=== PATIENT | female | born 1955 | race Caucasian/White ===

== ENCOUNTER 2020-08-31 09:42 | Emergency (ER) | payer OTHER, SELFPAY ==
[2020-08-31 09:50] VITALS: BP 146/88; PULSE 61; RESP 18; TEMP 37.2; O2SAT 100; BMI 21.0
--- NOTE | 2020-08-31 09:59 | ED.EAR ---
HPI - Ear Problem General Chief complaint: Ear Stated complaint: LT EAR SWOLLEN/ PAINFUL 2X DAYS Time Seen by Provider: 08/31/20 09:51 Source: patient Mode of arrival: Ambulatory Limitations: no limitations History of Present Illness HPI Narrative: Patient is a 65-year-old female with history of repaired thoracic aortic aneurysm presenting today with left ear pain and swelling. She says it started 2 days ago but has significantly gotten worse overnight. She denies any fever or chills. She initially thought she got a bug bite and noticed it was slightly pruritic but is no longer. She now has anterior cervical lymphadenopathy all the left as well. She denies any change in hearing MD Complaint: ear pain Location: left ear Duration: constant Severity: moderate Relieving factors: nothing Exacerbating factors: nothing Related Data Home Medications Medication Instructions Recorded Confirmed lisinopril 5 mg PO BID #1 06/18/11 Previous Rx's Medication Instructions Recorded cephalexin [Keflex] 500 mg PO TID #21 cap 08/31/20 Allergies Allergy/AdvReac Type Severity Reaction Status Date / Time No Known Drug Allergies Allergy Verified 08/31/20 09:50 Review of Systems Review of Systems Narrative: GENERAL: Denies chills, fatigue, malaise, fever, sweats, travel HEENT: see HPI RESPIRATORY: Denies dyspnea, cough, wheezing, hemoptysis, sputum. CARDIOVASCULAR: Denies chest pain, palpitations, orthopnea, edema GASTROINTESTINAL: Denies nausea, vomiting, abdominal pain, diarrhea, constipation, melena. : Denies dysuria, frequency, incontinence, hematuria, urinary retention, flank pain. MUSCULOSKELETAL: Denies weakness, joint pain, or bony pain SKIN: No rash, no erythema, no pruritus NEUROLOGIC: Denies weakness, dizziness, headache, numbness, change in speech, confusion PSYCHIATRIC: No concerning psychosocial issues. 12 point review of systems is negative except for those stated above and HPI Patient History Medical History Thoracic aortic aneurysm (Acute) Social History Smoking Status: Never smoker Smoking Status: Never smoker alcohol intake frequency: holidays/special occasions only Substance Use Type: does not use Exam Initial Vital Signs Initial Vital Signs: Vital Signs Temperature 99.0 F 10/04/20 09:50 Pulse Rate 61 08/31/20 09:50 Respiratory Rate 18 08/31/20 09:50 Blood Pressure 146/88 H 08/31/20 09:50 Pulse Oximetry 100 08/31/20 09:50 GENERAL: Well-appearing, well-nourished and in no acute distress. HEENT: Head atraumatic,EOMI, pupils reactive, face symmetric, moist mucous membranes EARS: Tympanic membranes visualized, no erythema or bulging, no hemotympanum left ear externally is noted to be significantly swollen there is a small scab noted on the very superior part. There is some mild erythema. She does have cervical lymphadenopathy on the left as well. No tenderness over mastoid. CARDIOVASCULAR: Regular rate and rhythm without murmurs, rubs or gallops. RESPIRATORY: Breath sounds equal bilaterally, no wheezes rales or rhonchi. EXTREMITIES: Normal range of motion, no clubbing or edema. Neurovascularly intact NEUROLOGICAL: Alert and oriented x4. SKIN: Warm, dry, no laceration, no petechiae, no rashes or lesions. Course Vital Signs Vital signs: Vital Signs - 8 hr 08/31/20 09:50 Temperature 99.0 F Pulse Rate 61 Respiratory Rate 18 Blood Pressure 146/88 H Pulse Oximetry 100 Medical Decision Making MDM Narrative Medical decision making narrative: Differential diagnosis includes allergic reaction versus cellulitis. Do not suspect otitis media or otitis externa there are no signs or symptoms of that. At this time recommend treating with antibiotics for possible cellulitis and monitoring Discharge Plan Departure Patient Disposition: Home Clinical Impression: Cellulitis Qualifiers: Site of cellulitis: unspecified site Qualified Code(s): L03.90 - Cellulitis, unspecified Discharge Date/Time: 08/31/20 10:11 Instructions: Cellulitis Activity Restrictions/Additional Instructions: *You have been diagnosed with cellulitis left ear *What to do: At this time recommend starting antibiotics to see if you have improvement. *Continue to take medications as directed Keflex 500 mg 3 times a day for 7 days *Follow up with your primary care provider in 2-3 days *Return to ER if you should have increased swelling, pain, redness, fever or any new, worsening or concerning symptoms Prescriptions: New cephalexin [Keflex] 500 mg capsule 500 mg PO TID Qty: 21 RF: 0 No Action lisinopril 5 MG tablet 5 mg PO BID Qty: 1 RF: 0 Referrals: [facility] [Outside] Jorden Beltrán MD [Non-Staff] - Neville Kirkland MD [Non-Staff] - Matthieu Navarro MD [Physician] - Tom Carnes MD [Physician] -
== END 2020-08-31 10:11 | disposition home or self-care (01) ==
PROVIDERS: Emergency Provider Emergency Medicine
DX: H60.12 Cellulitis of left external ear (principal)
CPT/HCPCS: 99281

== ENCOUNTER 2020-09-04 15:27 | Emergency (ER) | payer OTHER, SELFPAY ==
[2020-09-04 15:37] VITALS: BP 159/80; PULSE 59; RESP 18; TEMP 37.3; O2SAT 96; BMI 21.9
--- NOTE | 2020-09-04 16:30 | PC.NURSE ---
Pt has muliptl area of swelling and blistering on left ear,neck and left shoulder. Pt recently here started on antibiotic.
--- NOTE | 2020-09-04 17:28 | ED.SKABFB ---
HPI - Skin/Abscess/Foreign Bdy <Greta Johnson PA-C - Last Filed: 09/05/20 19:30> General Chief complaint: Skin/Abscess/Foreign Body Stated complaint: rash, thinks shingles Time Seen by Provider: 09/04/20 16:28 Source: patient Mode of arrival: Ambulatory Limitations: no limitations History of Present Illness HPI narrative: This is a 65-year-old generally healthy woman with a history of thoracic aortic aneurysm who presents to the emergency department complaining of worsening rash since Tuesday. She was diagnosed with a cellulitis of her ear on Tuesday and started on Keflex however since that time her symptoms have worsened and her rash has spread. Her symptoms began with left ear pain and itching and then a rash developed in the top of her ear. Since that time she has developed a rash on the lower left side of her neck under her chin on the left side and most recently her left shoulder as well as the back of her neck and scalp only on the left side. Patient describes her pain as sharp constant very intense. She has pain when she opens and closes her jaw, and she has pain shooting into her ear and pain shooting from her denominational to behind her eye. She endorses a generalized headache but notes it is mostly on the left and very intense. She does not feel she has had any vision changes but then notes that she feels things may be slightly more blurry on the left than usual but she is not sure if she is just having pain which is affecting her a little bit. She has been having itchiness however the pain is more severe than the itching. She did have chickenpox as a child, she has not had the shingles vaccine. She has discomfort with moving her head in her neck but only on the left side. She denies any fever, chills, nausea, vomiting, diarrhea, abdominal pain, chest pain, voice changes, paralysis of her face, bilateral neck pain or any other symptoms. Patient moved here from [place] in January and does not have an established primary care provider here, she is anticipating living here long-term in the future. complaint: rash Onset (ago): day(s) (5) Tetanus up to date: unsure Location: head (Left ear left neck left posterior scalp), neck and LUE (Left shoulder on the top) Severity: severe Severity scale (1-10): 9 Quality: burning, sharp, constant and pruritic Pain Consistency: constant Relieving factors: none and other (Has been taking aspirin without relief) Exacerbating factors: none Context: none Associated symptoms: denies other symptoms Treatments prior to arrival: antibiotic (Has been taking Keflex since Tuesday) Related Data Home Medications Medication Instructions Recorded Confirmed lisinopril 5 mg PO BID #1 06/18/11 Previous Rx's Medication Instructions Recorded cephalexin [Keflex] 500 mg PO TID #21 cap 08/31/20 oxycodone-acetaminophen 1 tab PO Q4-6H PRN #20 tab 09/04/20 prednisolone See Rx Instructions .ROUTE 09/04/20 .COMPLEX #48 each valacyclovir See Rx Instructions .ROUTE 09/04/20 .COMPLEX #60 tab Allergies Allergy/AdvReac Type Severity Reaction Status Date / Time No Known Drug Allergies Allergy Verified 09/04/20 15:41 Review of Systems <Greta Johnson PA-C - Last Filed: 09/05/20 19:30> Review of Systems Narrative: GENERAL: Denies chills, fatigue, malaise, fever, sweats. HEENT: Denies sinus pain, positive for left ear pain, positive for left-sided throat pain only when swallowing negative for sore throat, negative for difficulty swallowing, dizziness. RESPIRATORY: Denies dyspnea, cough, wheezing, hemoptysis, sputum. CARDIOVASCULAR: Denies chest pain, palpitations, orthopnea, edema, GASTROINTESTINAL: Denies nausea, vomiting, abdominal pain, diarrhea, constipation, melena. : Denies dysuria, frequency, incontinence, hematuria, urinary retention. MUSCULOSKELETAL: denies weakness, joint pain, or bony pain, she has no midline spinal process tenderness, she has discomfort on the left side of her neck only, no meningeal signs. SKIN: Positive for rash of her left ear left neck under her chin left shoulder. Negative for other skin lesions, or other NEUROLOGIC: Denies weakness, headache, positive for a numb sensation in her left ear (externally), negative for change in speech, confusion, seizures, incoordination. PSYCHIATRIC: No concerning psychosocial issues. 12 point review of systems is negative except for those stated above ROS Unobtainable: All systems reviewed & are unremarkable except as noted in HPI and below Patient History <Greta Johnson PA-C - Last Filed: 09/05/20 19:30> Medical History Thoracic aortic aneurysm (Acute) Social History Smoking Status: Never smoker Smoking Status: Never smoker alcohol intake frequency: holidays/special occasions only Substance Use Type: does not use Exam <Greta Johnson PA-C - Last Filed: 09/05/20 19:30> Narrative Exam Narrative: GENERAL: 65 year old patient appears stated age. Well-nourished, well-developed patient, in moderate distress. HEAD: Atraumatic. Normocephalic. EYES: Pupils equal round and reactive. Extraocular motions intact. No scleral icterus. No injection or drainage. ENT: Nose without bleeding, purulent drainage. Throat without erythema, tonsillar hypertrophy or exudate. Airway patent. The left ear canal is normal in appearance, as is the right, the left and right tympanic membranes are normal in appearance with exception of left TM is slightly injected. Patient has pain on the left side of her jaw with chewing and biting down. There is a 1 cm x 2 cm lesion on the anterior auricle of the ear, see skin there are multiple additional lesions of the left side of the neck and on the left shoulder. NECK: Trachea midline. Non tender CARDIOVASCULAR: Regular rate and rhythm without murmurs, gallops, or rubs. RESPIRATORY: Clear to auscultation. Breath sounds equal bilaterally. No wheezes, rales, or rhonchi. GASTROINTESTINAL: Abdomen soft, non-tender, nondistended. EXTREMITIES: No edema or joint tenderness. BACK: Nontender without deformity or crepitance. No flank tenderness. NEURO: AOx3. Cranial nerves are intact SKIN: Patient has a diffuse papular rash in various stages of healing. Anterior auricle with scabbing, multiple papular 0.5 cm or less spots of rash on the left side of her neck and left inferior chin, vesicular rash on left shoulder, erythematous slightly vesicular rash of left posterior scalp. Distribution ranges from C1 to C5 dermatome left side only. No other rash Or erythema of visible areas Initial Vital Signs Initial Vital Signs: Vital Signs Temperature 99.2 F 10/08/20 15:37 Pulse Rate 59 L 10/08/20 15:37 Respiratory Rate 18 09/04/20 15:37 Blood Pressure 159/80 H 09/04/20 15:37 Pulse Oximetry 96 09/04/20 15:37 <Nabeel Shaw MD - Last Filed: 09/08/20 07:30> Initial Vital Signs Initial Vital Signs: Vital Signs Temperature 99.2 F 09/04/20 15:37 Pulse Rate 59 L 09/04/20 15:37 Respiratory Rate 18 09/04/20 15:37 Blood Pressure 159/80 H 09/04/20 15:37 Pulse Oximetry 96 09/04/20 15:37 Scores <Greta Johnson PA-C - Last Filed: 09/05/20 19:30> GCS Ashley coma scale eye opening: Spontaneous Brimson coma scale verbal response: Orientated Ashley coma scale motor response: Obey commands Ashley coma scale total score: 15 Course <Greta Johnson PA-C - Last Filed: 09/05/20 19:30> Course Course Narrative: Visual acuity was 20/30, patient does normally wear contacts that she is not currently wearing them. Patient does not note any difference in her vision during the exam compared to her normal. Orders Ordered: Discontinued Medications Oxycodone/Acetaminophen (Percocet 5/325) 1 tab PO NOW ONE Stop: 09/04/20 18:12 Last Admin: 09/04/20 18:42 Dose: 1 tab Documented by: BRANDON Valacyclovir HCl (Valtrex) 1,000 mg PO NOW ONE Stop: 09/04/20 18:14 Last Admin: 09/04/20 18:42 Dose: 1,000 mg Documented by: BRANDON Vital Signs Vital signs: Vital Signs - 8 hr 09/04/20 15:37 Temperature 99.2 F Pulse Rate 59 L Respiratory Rate 18 Blood Pressure 159/80 H Pulse Oximetry 96 <Nabeel Shaw MD - Last Filed: 09/08/20 07:30> Orders Ordered: Discontinued Medications Oxycodone/Acetaminophen (Percocet 5/325) 1 tab PO NOW ONE Stop: 09/04/20 18:12 Last Admin: 09/04/20 18:42 Dose: 1 tab Documented by: BRANDON Valacyclovir HCl (Valtrex) 1,000 mg PO NOW ONE Stop: 09/04/20 18:14 Last Admin: 09/04/20 18:42 Dose: 1,000 mg Documented by: BRANDON Vital Signs Vital signs: Vital Signs - 8 hr 09/04/20 15:37 Temperature 99.2 F Pulse Rate 59 L Respiratory Rate 18 Blood Pressure 159/80 H Pulse Oximetry 96 [facility] - Skin/Abscess/Foreign Bdy <Greta Johnson PA-C - Last Filed: 09/05/20 19:30> Differential Diagnosis Differential diagnosis: Likely abscess of skin or subcutaneous tissue, cellulitis, eczema, insect bites, contact dermatitis and other (Shingles, [place] orifice) Medical Records Attestation: I reviewed the patient's medical records. [facility] Narrative Medical decision making narrative: This is very uncomfortable appearing 65-year-old woman who presents with complaints of worsening left ear pain with rash of her left ear neck left chin and left shoulder. Patient has been on antibiotics since Tuesday, 5 days ago for possible cellulitis of the left ear. Exam is consistent with a zoster, she has no eye involvement, cranial nerves are intact. She is initiated on the valacyclovir in the emergency department and prescribed an additional 10 day course of valacyclovir given the number of dermatomes that her symptoms crosses. C1 through C5. She is also given a prescription for a prednisone and pain control. I have low suspicion for meningitis or other organ involvement. Emergency return precautions provided, all questions answered. Patient is to follow-up with her primary care provider. Discharge Plan Departure Patient Disposition: Home Clinical Impression: Herpes zoster oticus Shingles outbreak Qualifiers: Herpes zoster complications: without complications Qualified Code(s): B02.9 - Zoster without complications Discharge Date/Time: 09/04/20 19:25 Instructions: DI for Shingles, Kenneth Mandel Syndrome Activity Restrictions/Additional Instructions: Thank you for letting us be part of your care in the emergency department today. I do think that you are suffering from shingles, and is affecting multiple ?dermatomes and ?meaning there are multiple nerves involved, you received your 1st dose of antiviral medication in the emergency department today, it is very important you continue to take this for the next 10 days, you should be taking 1000 mg 3 times a day for the next 10 days. I have written a prescription for this, in addition I have given you a prescription for prednisone which often helps with pain relief and may reduce some of the inflammation related to this, if you choose not to you do not have to take the prednisone hello though however it may be some relief. I have also prescribed opioid pain medicine for pain control. Once the antiviral start to take effect you should have improvement in your pain over the next few days. Please monitor your symptoms carefully, do watch for any concerning changes such as vision changes, paralysis of your face, Vertigo, spreading of the rash, fever, chills, nausea, vomiting, diarrhea or any other symptoms of concern to you. I have included information on the [facility] resources in your paperwork, you can call them to work on establishing a primary care locally, it is very important that you follow-up if need be you can return to the emergency department to be seen particularly if your symptoms are not improving or certainly if they are worsening. You are at risk of developing a bacterial skin infection due to the lesions you have from the virus, so actually do want you to continue and finish your course of Keflex. You do not have a Butler Mandel syndrome today, however I have included information on this for your review and if you do develop any the symptoms please do not hesitate to return to the emergency department. There is no evidence of an emergent or life threatening illness at this time, but follow up with your doctor in 1-2 days is recommended nonetheless to continue to rule out serious underlying causes of your symptoms. Please call the office for an appointment. Please return to the Emergency Department for any worsening or persistent symptoms. Please take medications as directed. Prescriptions: New valacyclovir 500 mg tablet See Rx Instructions .ROUTE .COMPLEX Qty: 60 RF: 0 prednisolone 5 mg (48 tabs) tablets,dose pack See Rx Instructions .ROUTE .COMPLEX Qty: 48 RF: 0 oxycodone-acetaminophen 5-325 mg tablet 1 tab PO Q4-6H PRN (Reason: pain shingles) Qty: 20 RF: 0 No Action lisinopril 5 MG tablet 5 mg PO BID Qty: 1 RF: 0 cephalexin [Keflex] 500 mg capsule 500 mg PO TID Qty: 21 RF: 0 Referrals: [facility] [Outside] <Nabeel Shaw MD - Last Filed: 09/08/20 07:30> Cosign ED Attending Cosignature Attestation: I was immediately available in the department for consultation. This documentation has been reviewed and I agree with assessment and plan. Supervised by Nabeel Shaw MD
[2020-09-04] MEDS: valACYclovir 500 MG TABLET 1000 MG PO (18:42)
[2020-09-04] MEDS: OXYCODONE/ACETAMINOPHEN 5/325 TABLET 1 TAB PO (18:42)
--- NOTE | 2020-09-04 18:55 | PC.NURSE ---
pt states that she normally wears contact lenses
[2020-09-04 19:32] VITALS: BP 140/75; PULSE 55; RESP 15; O2SAT 98
== END 2020-09-04 19:25 | disposition home or self-care (01) ==
PROVIDERS: Emergency Provider Student in an Organized Health Care Education/Training Program
DX: B02.21 Postherpetic geniculate ganglionitis (principal); B02.9 Zoster without complications
CPT/HCPCS: 99283

== ENCOUNTER → 2022-07-13 10:08 | Outpatient (CLI) | payer MEDICARE, OTHER, SELFPAY | PROVIDERS: PCP Physician Assistant; Referring Provider Physician Assistant; Visit Provider Physician Assistant | DX: Z13.820 Encounter for screening for osteoporosis (principal); Z78.0 Asymptomatic menopausal state; M81.0 Age-related osteoporosis without current pathological fracture; Z85.3 Personal history of malignant neoplasm of breast; Z90.710 Acquired absence of both cervix and uterus | CPT/HCPCS: 77080 ==

== ENCOUNTER → 2022-12-23 12:26 | Outpatient (CLI) | payer MEDICARE, OTHER, SELFPAY ==
--- NOTE | 2022-12-23 | DI.RAD.S_ITS ---
PROCEDURE: XR KNEE RT 4V INDICATIONS: pain in right knee TECHNIQUE: Four views of the knee were acquired. COMPARISON: None. FINDINGS: Bones: No fractures. Normal mineralization. Mild medial compartment joint space loss and slight marginal spur formation. Otherwise normal bone alignment. Soft tissues: Trace joint effusion. Medial and lateral compartment chondrocalcinosis. IMPRESSION: 1. Mild medial compartment joint degeneration. 2. Chondrocalcinosis. 3. Trace right knee joint effusion. Dictated by: Belén Venegas M.D. on 12/23/2022 at 16:50 Approved by: Belén Venegas M.D. on 12/23/2022 at 16:52
== END ==
PROVIDERS: PCP Physician Assistant; Referring Provider Physician Assistant; Visit Provider Physician Assistant
DX: M17.11 Unilateral primary osteoarthritis, right knee (principal); M11.261 Other chondrocalcinosis, right knee; M25.561 Pain in right knee
CPT/HCPCS: 73564

== ENCOUNTER 2023-08-22 06:53 | Day surgery (SDC) | payer MEDICARE, OTHER, SELFPAY ==
--- NOTE | 2023-08-22 | PATH_ITS ---
[facility] Accession Number: [id number] No. of containers..02 Tissue . 01 Material submitted: . PART A: stomach - ANTRUM PART B: rectum - RECTUM . 01 Diagnosis: A- STOMACH, ANTRUM, BIOPSY: - ANTRAL GASTRIC MUCOSA WITH NO HISTOLOGIC ABNORMALITY. - NO H. PYLORI LIKE ORGANISMS IDENTIFIED (ON THE H/E-STAINED SECTIONS). - NEGATIVE FOR GASTRITIS, INTESTINAL METAPLASIA, DYSPLASIA OR MALIGNANCY. --- B- RECTUM, RANDOM, BIOPSIES: - BENIGN COLONIC MUCOSA WITH THICKENED IRREGULAR SUBEPITHELIAL COLLAGEN - SEE COMMENT -- Comment for part B: There is increased thickened irregular subepithelial collagen trapping subepithelial inflammatory cells and capillaries which is highlighted by trichrome special stain. The differential diagnosis includes conditions such as rectal prolapse, and collagenous colitis which should be considered in the right clinical setting. Technical Note: The immunohistochemical stains reported were performed at [facility] ([address], [facility] [address]). They were developed and their performance characteristics determined by [employer]. They have not been cleared or approved by the U.S. Food and Drug Administration, although such approval is not required for analyte-specific reagents of this type. TXN 08/26/2023 1557 [facility] . 01 Electronically signed: . Tawfeq MD Mayela, Pathologist NPI- [id number] . 01 Gross description: . Part A: ANTRUM: Received in formalin are 2 fragment(s) of truong, soft tissue measuring 0.1 x 0.1 x 0.1 cm to 0.3 x 0.2 x 0.2 cm submitted entirely in 1 cassette(s) Part B: RECTUM: Received in formalin are multiple fragment(s) of truong, soft tissue measuring 0.1 x 0.1 x 0.1 cm to 0.2 x 0.2 x 0.2 cm submitted entirely in 1 cassette(s) /ROSALIE 08/23/2023 2330 Local . 01 Pathologist provided ICD-10: K21.9 . 01 CPT . 373101, 895002, 433947 Specimen Comment: A courtesy copy of this report has been sent to [phone] Performed at: 01 [facility] [address] [place] [address] [address] [facility], [place], [place] [id number] MD Kush Juarez MD Phone: [phone]
[2023-08-22] MEDS: LACTATED RINGERS 1,000 ML 42 ML IV (07:06)
[2023-08-22 07:18] VITALS: BMI 22.6
[2023-08-22 07:37] VITALS: BP 141/78; PULSE 71; RESP 17; TEMP 36.9; O2SAT 99
--- NOTE | 2023-08-22 08:12 | P.HP_ITS ---
History of Present Illness History of Present Illness Date Patient Seen: 08/22/23 Time Patient Seen: 08:12 Chief complaint: EGD w/flex sig Narrative: Here for history of chronic reflux to screen for Barretts and evaluate for any sign of peptic ulcer disease. There has also been rectal bleeding which I suspect is going to be hemorrhoidal. 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 Because of computer related issues, I was unable to access my note from May 17, 2023 only the assessment and plan component. [facility] Medical History Thoracic aortic aneurysm Social History household members: spouse Smoking Status: Never smoker Meds Home Medications and Allergies Home Medications Medication Instructions Recorded Confirmed Type amlodipine 10 mg tablet 10 mg PO DAILY 08/22/23 08/22/23 History irbesartan 150 mg tablet 150 mg PO DAILY 08/22/23 08/22/23 History rosuvastatin 5 mg tablet 2.5 mg PO DAILY 08/22/23 08/22/23 History Allergies Allergy/AdvReac Type Severity Reaction Status Date / Time No Known Drug Allergies Allergy Verified 08/22/23 07:14 Review of Systems Review of Systems ROS: Yes All systems reviewed with the patient and are negative except as otherwise documented Exam Vital Signs (past 8 hours): - 08/22/23 07:37 Temperature 98.4 F Pulse Rate 71 Respiratory Rate 17 Blood Pressure 141/78 H Pulse Oximetry 99 Oxygen Delivery Method Room Air Oxygen Delivery Method Room Air Const General: cooperative HENMT Head: normal to inspection Eyes General: appearance normal, both eyes and all related structures Neck Neck: normal visual inspection Chest Chest: normal inspection of the chest Resp Effort & Inspection: normal respiratory effort Cardio Rate: regular rate GI Inspection: normal to inspection Skin General: no rashes or lesions noted Neuro General: patient alert and patient awake Extrem General: normal to inspection and no pedal edema Psych Appearance: grossly normal Assessment & Plan Assessment & Plan narrative: 68-year-old female with chronic GERD, rectal bleeding, history of tubulovillous adenoma. EGD and flex sig are pursued today.
--- NOTE | 2023-08-22 08:15 | PM.PREOP ---
Pre-operative Note Interval Note History & Physical reviewed/Exam performed by Physician: Yes Changes to H&P: No ASA Class (for procedural sedation): II
--- NOTE | 2023-08-22 08:51 | P.OP.EGD&C_ITS ---
Operative Date/Time/Diagnoses Date of procedure: 08/22/23 Time of procedure: 08:51 Pre-op diagnosis: Chronic GERD, rectal bleeding, personal history of tubulovillous adenoma. Post-op diagnosis: same Procedure & Clinicians Study performed: EGD with biopsies and a colonoscopy with biopsies. Same procedure as scheduled: Yes Indications: Chronic GERD, rectal bleeding, personal history of tubulovillous adenoma Surgeon: Dinesh Bird Procedure Notes SCOAP/Timeout: Done Procedure in detail: After the risks and benefits were explained, written and verbal informed consent was obtained. The patient was brought into the procedure room and placed into the left lateral decubitus position. Please see anesthesia notes for sedation details. The scope was introduced into the mouth through the bite block and advanced under direct visualization to the 2nd portion of the duodenum. The scope was slowly withdrawn carefully examining the mucosa for any defects or lesions. Retroflexed views were accomplished in the stomach. The stomach was decompressed, the scope was then removed from the patient who tolerated the procedure well. The patient was then turned around. A digital rectal examination was accomplished. Grade 3 and grade 4 nonbleeding nonthrombosed hemorrhoids were noted. The scope was introduced into the rectum and advanced under direct visualization to the cecum as identified by the appendiceal orifice and ileocecal valve. The scope was slowly withdrawn to carefully examine the mucosa for any defects or lesions. Multiple direct views were made through the dentate line for exclusion of pathology. The colon was decompressed. The scope was then removed from the patient who tolerated the procedure well. We elected to proceed with a full colonic evaluation instead of just a sigmoidoscopy in that the tattoos were quite clearly in the proximal rectum and not sigmoid. I additionally was concerned about the possibility of neoplastic pathology in the rectum and therefore a complete colonoscopically mucosal exam was appropriate. Pediatric colonoscope Bowel prep adequate Scope withdrawal time: 12 minutes Sedation minutes: 30 Complications: none Impression: 1. Duodenum: There was some scattered erythema in the duodenal bulb. No ulcers no mass lesions. D2 was entirely normal. 2. Stomach: The patient had scattered erosive features all throughout the antrum and biopsies were therefore acquired to exclude H pylori or other pathology. Otherwise retroflexed views of the LES were unremarkable. No ulcers or mass lesions. 3. Esophagus: The squamocolumnar junction generally correlated with the top of the gastric folds. GEJ was at about 36 cm from the incisors. The patient did have LA grade B erosive esophagitis. The remainder of the esophagus was fairly unremarkable. Patient had a small sliding hiatal hernia noted. 4. Colon: Grade 3 to grade 4 nonbleeding nonthrombosed hemorrhoids were noted as outlined above. The patient had diverticulosis all throughout the sigmoid even extending up into proximal transverse. There were at least 3 tattoo points in the proximal rectum. In between all of these tattoos was an excavated ulcer and adjacent to the ulcer was submucosal fullness. Pushing on the polypoid fold appearing areas demonstrated that the underlying pathology was reasonably soft to the closed forceps. I however took multiple biopsies from the area of the ulcer and the polypoid structures on either side of the ulcer (see photographs). No additional significant mucosal pathology was appreciated throughout. Endoscopic diagnosis 1. Small sliding hiatal hernia 2. LA grade B erosive esophagitis 3. Rectal ulceration with polypoid features-stercoral ulceration versus recurrent neoplasia. 4. Diverticulosis 5. Grade 3 to grade 4 hemorrhoids Post-procedure Plan for aftercare: 1. Await histopathology. 2. Minimize NSAIDs. 3. Consider a more proactive regular anti-reflux approach with something such as famotidine 20 mg once daily. 4. Continue daily fiber supplementation for soft regular stools. 5. Intermittent warm Epsom salt baths to reduce hemorrhoidal engorgement. 6. Contingent on rectal pathology, further evaluation with rectal endoscopic ultr asound may be appropriate here. Disposition: PACU
[2023-08-22 08:52] VITALS: BP 95/58; PULSE 65; RESP 20; TEMP 36.3; O2SAT 96
[2023-08-22 08:57] VITALS: BP 96/61; PULSE 64; RESP 22; O2SAT 95
[2023-08-22 09:02] VITALS: BP 106/71; PULSE 92; RESP 14; TEMP 36.3; O2SAT 96
[2023-08-22 09:10] VITALS: BP 110/73; PULSE 56; RESP 21; O2SAT 95
[2023-08-22 09:22] VITALS: BP 119/67; PULSE 57; RESP 22; O2SAT 97
== END 2023-08-22 09:28 | disposition home or self-care (01) ==
PROVIDERS: PCP Physician Assistant; Referring Provider Internal Medicine Gastroenterology; Visit Provider Internal Medicine Gastroenterology
PROC: 0DJ08ZZ Inspection of Upper Intestinal Tract, Via Natural or Artificial Opening Endoscopic (ICD-10-PCS; CPT 43235; principal; 2023-08-22 08:00)
PROC: 0DJD8ZZ Inspection of Lower Intestinal Tract, Via Natural or Artificial Opening Endoscopic (ICD-10-PCS; CPT 45378; 2023-08-22 08:00)
DX: K62.5 Hemorrhage of anus and rectum (principal); Z86.010 Personal history of colon polyps; K21.00 Gastro-esophageal reflux disease with esophagitis, without bleeding; K44.9 Diaphragmatic hernia without obstruction or gangrene; K57.30 Diverticulosis of large intestine without perforation or abscess without bleeding; K64.2 Third degree hemorrhoids; K62.6 Ulcer of anus and rectum
CPT/HCPCS: 45380; 43239; J2704

== ENCOUNTER → 2023-08-24 15:11 | Outpatient (CLI) | payer MEDICARE, OTHER, SELFPAY ==
--- NOTE | 2023-08-24 | DI.MRI.S_ITS ---
PROCEDURE: MR CERVICAL SPINE WO CON INDICATIONS: Radiculopathy, cervical region TECHNIQUE: Noncontrast sagittal T1 spin echo and T2 fast spin echo, sagittal STIR, foraminal oblique sagittal T2 fast spin echo, and axial gradient echo or T2 fast spin echo through the cervical spine. COMPARISON: [facility], CR, XR CERVICAL SPINE 6+ VIEWS, 07/13/2023, 9:08. FINDINGS: Image quality: This examination is limited by involuntary motion artifact. Alignment and Curvature: There is normal bony alignment. Bone Marrow: Marrow demonstrates normal overall signal. Scattered foci are seen, which are hyperintense on T1-weighted and T2-weighted imaging, which are most consistent with benign vertebral body hemangiomas. Spinal Cord: Visualized spinal cord has normal size and signal. No cerebellar tonsillar herniation. Paraspinous Soft Tissues: No paravertebral masses. Prevertebral soft tissues are normal in thickness. C2-C3: Mild loss of disc height is seen. Loss of disc signal is seen. A mild degree of generalized disc osteophyte complex is seen. There is moderate right-sided and [id number] left-sided facet hypertrophy. Moderate bilateral neural foraminal narrowing is seen. No significant central canal narrowing is seen. C3-C4: Moderate loss of disc height is seen. Loss of disc signal is seen. Moderate generalized disc osteophyte complex is seen. Uncovertebral joint hypertrophy is seen at this level. There is at least moderate right-sided and moderate left-sided facet hypertrophy. There is moderate to severe bilateral neural foraminal narrowing. Mild central canal narrowing is seen. C4-C5: Moderate loss of disc height is seen. Loss of disc signal is seen. Moderate generalized disc osteophyte complex is seen. There is at least moderate facet hypertrophy seen. Moderate to severe bilateral neural foraminal narrowing can be seen. At least moderate central canal narrowing is seen. There is associated mass effect upon the ventral spinal cord. C5-C6: Moderate loss of disc height is seen. Loss of disc signal is seen. Moderate generalized disc osteophyte complex is seen. There is at least moderate right-sided and moderate left-sided facet hypertrophy. There is moderate to severe bilateral neural foraminal narrowing seen. Mild central canal narrowing is seen. C6-C7: Moderate loss of disc height is seen. Loss of disc signal is seen. Moderate disc osteophyte complex is seen, with a central disc protrusion. Uncovertebral joint hypertrophy is seen at this level. Moderate facet joint hypertrophy is seen. There is moderate to severe bilateral neural foraminal narrowing seen, left worse than right. Moderate central canal narrowing is seen. There is associated mass effect upon the ventral spinal cord. C7-T1: Mild loss of disc height is seen. Loss of disc signal is seen. Mild to moderate disc osteophyte complex is seen. There is moderate left-sided and [id number] right-sided facet hypertrophy. There is moderate to severe left-sided and moderate right-sided neural foraminal narrowing. Mild to moderate central canal narrowing is seen. IMPRESSION: Multiple levels of significant cervical spine degenerative change can be seen, which are overall worst at the C6-C7 level. Dictated by: Zafar Dang M.D. on 08/24/2023 at 16:45 Approved by: Zafar Dang M.D. on 08/24/2023 at 16:49
== END ==
PROVIDERS: PCP Physician Assistant; Referring Provider Physical Medicine & Rehabilitation Pain Medicine; Visit Provider Physical Medicine & Rehabilitation Pain Medicine
DX: M47.22 Other spondylosis with radiculopathy, cervical region (principal)
CPT/HCPCS: 72141

== ENCOUNTER → 2025-05-09 08:03 | Outpatient (CLI) | payer MEDICARE, OTHER, SELFPAY ==
--- NOTE | 2025-05-09 08:05 | DI.MRI.S_ITS ---
PROCEDURE: MR HEAD/BRAIN WO/W CON INDICATIONS: headaches TECHNIQUE: Noncontrast axial T1 spin echo, axial T2 fast spin echo, sagittal and axial FLAIR, coronal T2 fast spin echo, axial gradient echo, axial diffusion and ADC through the brain. After the administration of contrast, axial and coronal and sagittal T1 spin echo with fat saturation through the brain. COMPARISON: None. FINDINGS: Image quality: Excellent. CSF spaces: Basal cisterns are patent. No extra-axial fluid collections. Ventricles are normal in size and shape. Brain: No midline shift. No intracranial bleeds or masses. No abnormal intracranial enhancement. There is cerebral volume loss for age. There is periventricular white matter chronic small vessel ischemic change. The brainstem appears normal. Diffusion-weighted images demonstrate no acute infarct. No chronic ischemic insults. Normal intravascular flow voids are present. The cerebellar tonsils demonstrate a normal shape and are not abnormally low lying. Skull and face: Calvarial marrow is normal in signal. Orbits appear normal. Sinuses: Sinuses and mastoids appear clear. IMPRESSION: Unremarkable intracranial study, without an imaging explanation found for the patient's presenting history of headache. No masses or abnormal enhancement can be seen. Dictated by: Zafar Dang M.D. on 05/09/2025 at 15:07 Approved by: Zafar Dang M.D. on 05/09/2025 at 15:08
== END ==
PROVIDERS: PCP Physician Assistant; Referring Provider Family Medicine; Visit Provider Family Medicine
DX: G44.89 Other headache syndrome (principal)
CPT/HCPCS: 70553; A9579

== ENCOUNTER 2025-06-02 16:59 | Emergency (ER) | payer MEDICARE, OTHER, SELFPAY ==
[2025-06-02 17:21] VITALS: BP 162/73; PULSE 74; RESP 16; TEMP 37.3; O2SAT 100; BMI 22.6
--- NOTE | 2025-06-02 17:27 | DI.RAD.S_ITS ---
PROCEDURE: XR FINGER LT MIN 2V INDICATIONS: crush injury to left thumb TECHNIQUE: AP hand, 2 views of the 1st finger(s) acquired. COMPARISON: None. FINDINGS: Bones: No fractures or dislocations. 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 No suspicious bony lesions. Soft tissues: No suspicious soft tissue calcifications. IMPRESSION: No acute left thumb fracture or dislocation. Dictated by: Rohan Ackerman M.D. on 06/02/2025 at 17:51 Approved by: Rohan Ackerman M.D. on 06/02/2025 at 17:51
[2025-06-02] MEDS: IBUPROFEN 400 MG TABLET 600 MG PO (17:32)
[2025-06-02 19:49] VITALS: BP 198/77; PULSE 63; TEMP 37.2; O2SAT 97
[2025-06-02] MEDS: TET,DIPH,PERTUSS(ACELL),VAC/PF 0.5 ML SYRINGE IM (20:21)
[2025-06-02] MEDS: LIDOCAINE 1% 20 ML INJ (20:22)
--- NOTE | 2025-06-02 20:37 | ED.WOUNDLAC ---
HPI - Wound/Laceration General Chief Complaint: Wound/Laceration Stated Complaint: L Thumb Laceration Time Seen by Provider: 06/02/25 20:25 Source: patient Mode of arrival: Ambulatory History of Present Illness HPI narrative: 70-year-old female had completed a kayaking day trip today with her , caught left thumb between the kayaks, sustained laceration to her left thumb. Able to move her left thumb, but painful. Denies injuries to adjacent other fingers, wrist, upper extremity. No other extremity injuries. No truncal back flank head neck face injuries. No fingernail bed injuries. Tetanus greater than 5 years ago. Related Data Home Medications ?Medication ?Instructions ?Recorded ?Confirmed amlodipine 10 mg tablet 10 mg PO DAILY 08/22/23 08/22/23 irbesartan 150 mg tablet 150 mg PO DAILY 08/22/23 08/22/23 rosuvastatin 5 mg tablet 2.5 mg PO DAILY 08/22/23 08/22/23 Allergies Allergy/AdvReac Type Severity Reaction Status Date / Time No Known Drug Allergies Allergy Verified 08/22/23 07:14 Patient History Medical History (Updated 06/02/25 @ 21:24 by Marcel Roberts MD) Thoracic aortic aneurysm Social History household members: spouse Smoking Status: Former smoker Smoking Status: Former smoker alcohol intake frequency: holidays/special occasions only Exam Narrative Exam Narrative: GENERAL: Well-developed patient, in mild distress. HEAD: Atraumatic. Normocephalic. EYES: Pupils equal round and reactive. Extraocular motions intact. No scleral icterus. No injection or drainage. ENT: Nose without bleeding, purulent drainage. Throat without erythema, tonsillar hypertrophy or exudate. Airway patent. NECK: Trachea midline. Non tender CARDIOVASCULAR: Regular rate and rhythm without murmurs, gallops, or rubs. RESPIRATORY: Clear to auscultation. Breath sounds equal bilaterally. No wheezes, rales, or rhonchi. GASTROINTESTINAL: Abdomen soft, non-tender, nondistended. EXTREMITIES: Left thumb curvilinear laceration volar medial aspect about 2 cm in total length. Good flexion extension function. On wound inspection I could not visualize any definite bone, foreign body, joint structure, tendon, ligamentous apparatus. BACK: Nontender without deformity or crepitance. No flank tenderness. NEURO: AOx3. Motor functions grossly nonfocal. SKIN: No rash or erythema of visible areas Initial Vital Signs Initial Vital Signs: Vital Signs Temperature 99.1 F 06/02/25 17:21 Pulse Rate 74 06/02/25 17:21 Respiratory Rate 16 06/02/25 17:21 Blood Pressure 162/73 H 06/02/25 17:21 Pulse Oximetry 100 06/02/25 17:21 Oxygen Delivery Method Room Air 06/02/25 17:21 Procedures Laceration Repair Laceration 1: Site: hand (Left medial volar aspect left thumb laceration skin) Side (If applicable): left Size (cm): 2.5 Description: linear Depth: simple, single layer Local Anesthetic: lidocaine 1% (Digital block) Amount of anesthesia used (mL): 3 Skin layer closed with: nylon Skin layer suture size: 5-0 Number of sutures: 7 Technique: simple, interrupted Course Orders Ordered: ED Orders 06/02/25 17:27 XR finger LT min 2V Stat Discontinued Medications Hydrocodone Bitart/Acetaminophen (Hydrocodone/Acet 5/325 Prepack) 1 bottle MISC DIRECTED ONE Stop: 06/02/25 21:23 Last Admin: 06/02/25 21:57 Dose: 1 bottle Documented By: EDI Hydrocodone Bitart/Acetaminophen (Hydrocodone/Acet 5/325 Prepack) 1 bottle MISC DIRECTED ONE Stop: 06/02/25 21:26 Last Admin: 06/02/25 21:48 Dose: Not Given Documented By: RLC Diphtheria/Tetanus/Acell Pertussis (Tet,Diph,Pertuss(Acell),Vac/Pf 0.5 Ml Syringe) 0.5 ml IM .ONCE ONE Stop: 06/02/25 20:13 Last Admin: 06/02/25 20:21 Dose: 0.5 ml Documented By: LILY Ibuprofen (Ibuprofen 400 Mg Tablet) 600 mg PO NOW ONE Stop: 06/02/25 17:29 Last Admin: 06/02/25 17:32 Dose: 600 mg Documented By: Lidocaine HCl (Lidocaine 1% 20 Ml) 20 ml INJ INTRA-OP ONE Stop: 06/02/25 20:14 Last Admin: 06/02/25 20:22 Dose: 20 ml Documented By: LILY Vital Signs Vital signs: Vital Signs - 8 hr 06/02/25 19:49 06/02/25 21:59 Temperature 99.0 F Pulse Rate 63 53 L Respiratory Rate 14 Blood Pressure 198/77 H 152/85 H Pulse Oximetry 97 98 Oxygen Delivery Method Room Air Room Air MDM - Wound/Laceration Imaging Data Extremity x-ray #1: Radiologist's Impression: [address] [id number] XRay Report Signed Patient: Judy Britt MR#: [id number] : 1955 Acct:[id number] Age/Sex: 70 / F Date of Service: 06/02/25 Loc: ED Accession Number: [id number] Procedure: XR finger LT min 2V Ordering Provider: Ema Harden MD PROCEDURE: XR FINGER LT MIN 2V INDICATIONS: crush injury to left thumb TECHNIQUE: AP hand, 2 views of the 1st finger(s) acquired. COMPARISON: None. FINDINGS: Bones: No fractures or dislocations. 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 No suspicious bony lesions. Soft tissues: No suspicious soft tissue calcifications. IMPRESSION: No acute left thumb fracture or dislocation. Dictated by: Rohan Ackerman M.D. on 06/02/2025 at 17:51 Approved by: Rohan Ackerman M.D. on 06/02/2025 at 17:51 [facility] Narrative Medical decision making narrative: 70-year-old female sustained laceration to left thumb, able to flex and extend the thumb, no visible bone/joint/tendon structures or foreign body on visual inspection. X-ray finger negative for fracture, dislocation, foreign body. See primary closure procedure note. Tetanus updated, Tdap IM given. Primary closure with good cosmesis, wound dressed, finger splint applied with [place] luís tape by nursing. Home pack hydrocodone to use if needed later tonight. Advised follow up wound check in a couple of days with PCP, likely suture removal 7-10 days over this mobile area. Discussion with patient/, it is possible in theory to have partial tendon injury that is not visible at this time, and at some future date when finger is loaded there could be some snapping of finger. But otherwise does not warrant further extension of the wound for exploration at this time. They expressed understanding. Discharged home. Follow up wound check as above. Return precautions discussed. Discharge Plan Departure Patient Disposition: Home Clinical Impression: Laceration of thumb Instructions: DI for Laceration Repair Activity Restrictions/Additional Instructions: Laceration left thumb from glancing cardiac wound earlier today after completion of kayaking trip. Tetanus update given. X-ray showed no obvious fracture. Skin laceration without visible tendon or bony or joint structures, with ability to flex and move. It is possible to have a partial tendon injury now that could later become a complete tendon injury now, or other deep space infection not obvious for risk now. Wound cleansed and closed with sutures of the skin. Splinted. Advised wound check in 2 days. Likely suture removal 7 to 10 days. Try to avoid getting wet or showering in the next couple of days until the wound seals somewhat. No immersion/bathing/swimming until sutures out. Return earlier if any change worsening symptoms or any concerns prior to next wound check. Prescriptions: No Action amlodipine 10 mg tablet 10 mg PO DAILY irbesartan 150 mg tablet 150 mg PO DAILY rosuvastatin 5 mg tablet 2.5 mg PO DAILY Referrals: Hui Rowe PA-C [Primary Care Provider, Medical] Stand Alone Forms: Patient Portal/API
[2025-06-02] MEDS: HYDROCODONE/ACET 5/325 PREPACK 1 BOTTLE MISC (21:57)
[2025-06-02 21:59] VITALS: BP 152/85; PULSE 53; RESP 14; O2SAT 98
== END 2025-06-02 22:00 | disposition home or self-care (01) ==
PROVIDERS: Emergency Provider Emergency Medicine; PCP Physician Assistant
DX: S61.012A Laceration without foreign body of left thumb without damage to nail, initial encounter (principal); X58.XXXA Exposure to other specified factors, initial encounter; Z23 Encounter for immunization
CPT/HCPCS: 12001; 73140; 90471; 99283; 90715

== ENCOUNTER 2025-09-03 07:28 | Emergency (ER) | payer MEDICARE, OTHER, SELFPAY ==
[2025-09-03 07:33] VITALS: BP 189/88; PULSE 77; O2SAT 98
[2025-09-03 07:34] VITALS: BP 189/88; PULSE 74; RESP 18; TEMP 37.2; O2SAT 98; BMI 22.8
--- NOTE | 2025-09-03 07:40 | ED.UPPEXIN ---
HPI - Extremity Injury (Upper) General Chief Complaint: Extremity Injury, Upper Stated Complaint: Left shoulder pain , going down arm Time Seen by Provider: 09/03/25 07:34 Source: patient Mode of arrival: Ambulatory History of Present Illness HPI narrative: 70-year-old female history of thoracic aortic aneurysm, breast cancer status post mastectomy, hypertension presents with left shoulder pain radiating down to left wrist after doing yd work this past weekend with no significant relief of her symptoms despite using OTC meds. She denies chest pain, nausea, vomiting, diaphoresis, shortness of breath, back pain, fever, chills, body aches, but does have neck pain, numbness, tingling, that goes down the arm also. Other than what is stated 14 point review of system is negative. Related Data Home Medications ?Medication ?Instructions ?Recorded ?Confirmed amlodipine 10 mg tablet 10 mg PO DAILY 08/22/23 08/22/23 irbesartan 150 mg tablet 150 mg PO DAILY 08/22/23 08/22/23 rosuvastatin 5 mg tablet 2.5 mg PO DAILY 08/22/23 08/22/23 Allergies Allergy/AdvReac Type Severity Reaction Status Date / Time No Known Drug Allergies Allergy Verified 09/03/25 07:34 Review of Systems Review of Systems ROS Unobtainable: All systems reviewed & are unremarkable except as noted in HPI and below Patient History Medical History (Updated 09/03/25 @ 10:00 by Johnnie Shaw DO) Thoracic aortic aneurysm Social History household members: spouse alcohol intake frequency: holidays/special occasions only Exam Narrative Exam Narrative: GENERAL: [70] year old patient appears stated age. Well-developed patient, in mild distress. HEAD: Atraumatic. Normocephalic. EYES: Pupils equal round and reactive. Extraocular motions intact. No scleral icterus. No injection or drainage. ENT: Nose without bleeding, purulent drainage. Throat without erythema, tonsillar hypertrophy or exudate. Airway patent. NECK: Trachea midline. Non tender CARDIOVASCULAR: Regular rate and rhythm without murmurs, gallops, or rubs. RESPIRATORY: Clear to auscultation. Breath sounds equal bilaterally. No wheezes, rales, or rhonchi. GASTROINTESTINAL: Abdomen soft, non-tender, nondistended. EXTREMITIES: No edema or joint tenderness. Decreased range of motion in flexion extension abduction adduction internal rotation left shoulder but still able to move it in all directions with pain, motor sensory intact +2 radial pulse cap refill less than 2 seconds BACK: Nontender without deformity or crepitance. No flank tenderness. NEURO: AOx3. SKIN: No rash or erythema of visible areas Initial Vital Signs Initial Vital Signs: Vital Signs Temperature 98.9 F 09/03/25 07:34 Pulse Rate 74 09/03/25 07:34 Respiratory Rate 18 09/03/25 07:34 Blood Pressure 189/88 H 09/03/25 07:34 Pulse Oximetry 98 09/03/25 07:34 Oxygen Delivery Method Room Air 09/03/25 07:34 [place] [facility] Name of Procedure: Left glenohumeral posterior approach steroid injection Side (if applicable): left (Left glenohumeral posterior approach steroid injection) Location: Left glenohumeral posterior approach steroid injection Time out performed: Yes Technique/Description of procedure performed: Patient draped and prepped in a sterile fashion. Using 22 1-1/2 gauge needle with 40 mg of 1 mL Kenalog and 4 mL of 1% lidocaine without epi patient injection posterior approach at glenohumeral joint Patient tolerated procedure: Well and No complications Course Orders Ordered: ED Orders 09/03/25 07:46 XR shoulder LT 2+ views Stat XR wrist LT min 3V Stat Discontinued Medications Hydrocodone Bitart/Acetaminophen (Hydrocodone/Acet 5/325 Tablet) 1 tab PO NOW ONE Stop: 09/03/25 07:47 Last Admin: 09/03/25 07:52 Dose: 1 tab Documented By: EB Amiodarone HCl/Dextrose (Nexterone) 150 mg in 100 mls @ 600 mls/hr IV NOW ONE; Protocol Stop: 09/03/25 09:25 Last Admin: 09/03/25 09:43 Dose: Not Given Documented By: ES Ibuprofen (Ibuprofen 400 Mg Tablet) 400 mg PO NOW ONE Stop: 09/03/25 07:47 Last Admin: 09/03/25 07:52 Dose: 400 mg Documented By: EB Lidocaine HCl (Lidocaine 2% Inj Mdv 20ml) 10 ml INJ INTRA-OP ONE Stop: 09/03/25 07:47 Last Admin: 09/03/25 07:54 Dose: 10 ml Documented By: JENNIFER Triamcinolone (Triamcinolone 40 Mg/Ml Vial) 40 mg INJ NOW ONE Stop: 09/03/25 07:47 Last Admin: 09/03/25 07:54 Dose: 40 mg Documented By: JENNIFER Vital Signs Vital signs: Vital Signs - 8 hr 09/03/25 07:34 Temperature 98.9 F Pulse Rate 74 Respiratory Rate 18 Blood Pressure 189/88 H Pulse Oximetry 98 Oxygen Delivery Method Room Air MDM - Extremity Injury (Upper) Imaging Data Extremity x-ray #1: Radiologist's Impression: [place] [address] XRay Report Signed Patient: Judy Britt MR#: [id number] : 1955 Acct:[id number] Age/Sex: 70 / F Date of Service: 09/03/25 Loc: ED Accession Number: [id number] Procedure: XR shoulder LT 2+ views Ordering Provider: Johnnie Shaw D.O. PROCEDURE: XR SHOULDER LT MIN 2V INDICATIONS: pain TECHNIQUE: 3 views of the shoulder were acquired. COMPARISON: None. FINDINGS: Bones: No fractures or dislocations. No suspicious bony lesions. Visualized ribs appear intact. Marked glenohumeral and moderate acromioclavicular joint degenerative disease. Multilevel degenerative changes are noted in the thoracic spine. Soft tissues: No suspicious soft tissue calcifications. Status post sternotomy. IMPRESSION: No acute bony abnormality. Extremity x-ray #2: Radiologist's Impression: [address] [address] XRay Report Signed Patient: Judy Britt MR#: [id number] : 1955 Acct:[id number] Age/Sex: 70 / F Date of Service: 09/03/25 Loc: ED Accession Number: [id number] Procedure: XR wrist LT min 3V Ordering Provider: Johnnie Shaw D.O. PROCEDURE: XR WRIST LT MIN 3V INDICATIONS: pain TECHNIQUE: 3 views of the wrist were acquired. COMPARISON: None. FINDINGS: Bones: No fractures or dislocations. No suspicious bony lesions. Degenerative changes are noted in the STT joint. Soft tissues: Mild soft tissue swelling is present. Calcifications are noted in the wrist joint. IMPRESSION: No acute fracture. Degenerative changes are present. Soft tissue swelling noted. MDM Narrative Medical decision making narrative: All lab work, vital signs, nurse triage note, medication list, previous ER visits, and all imaging studies reviewed. Wrist x-ray showed no acute fracture degenerative changes Are present and soft tissue swelling noted . Shoulder x-ray showed no acute process. Patient given glenohumeral posterior approach steroid injection for which patient tolerated procedure with no complications and also given ibuprofen and [place] here. Differential diagnosis includes fracture, dislocation ,arthritis, ligament injury. DC home on [place] and to follow up with pcp if no improvement in symptoms. Will also place a referral to [facility] Discharge Plan Departure Patient Disposition: Home Clinical Impression: Acute shoulder pain Qualifiers: Laterality: left Qualified Code(s): M25.512 - Pain in left shoulder Acute wrist pain Qualifiers: Laterality: left Qualified Code(s): M25.532 - Pain in left wrist Prescriptions: No Action amlodipine 10 mg tablet 10 mg PO DAILY irbesartan 150 mg tablet 150 mg PO DAILY rosuvastatin 5 mg tablet 2.5 mg PO DAILY Referrals: Hui Rowe PA-C [Primary Care Provider, Medical] Stand Alone Forms: Patient Portal/API
--- NOTE | 2025-09-03 07:45 | PC.NURSE ---
Pt presents to ED after consistent pain in L shoulder/wrist and throughout arm since Sunday 09/02 in the AM. Pt reports she and her had been doing yard work on Saturday 09/01 prior to her pain. Pt also reports numbness in her Middle, ring, and pinky fingers and top of her hand. Upon movement pt reports sharp shooting pain in her fingers and hand worsen. Pt reports this AM she took 3 Wendie aspirins at 0500. Pt reports no medications have been effective for her pain.
--- NOTE | 2025-09-03 07:46 | DI.RAD.S_ITS ---
PROCEDURE: XR SHOULDER LT MIN 2V INDICATIONS: pain TECHNIQUE: 3 views of the shoulder were acquired. COMPARISON: None. FINDINGS: Bones: No fractures or dislocations. No suspicious bony lesions. Visualized ribs appear intact. Marked glenohumeral and moderate acromioclavicular joint degenerative disease. Multilevel degenerative changes are noted in the thoracic spine. Soft tissues: No suspicious soft tissue calcifications. Status post sternotomy. IMPRESSION: No acute bony abnormality. Dictated by: Annia Morales M.D. on 09/03/2025 at 9:16 Approved by: Annia Morales M.D. on 09/03/2025 at 9:18
--- NOTE | 2025-09-03 07:46 | DI.RAD.S_ITS ---
PROCEDURE: XR WRIST LT MIN 3V INDICATIONS: pain TECHNIQUE: 3 views of the wrist were acquired. COMPARISON: None. FINDINGS: Bones: No fractures or dislocations. No suspicious bony lesions. Degenerative changes are noted in the STT joint. Soft tissues: Mild soft tissue swelling is present. Calcifications are noted in the wrist joint. IMPRESSION: No acute fracture. Degenerative changes are present. Soft tissue swelling noted. Dictated by: Annia Morales M.D. on 09/03/2025 at 9:18 Approved by: Annia Morales M.D. on 09/03/2025 at 9:21
[2025-09-03] MEDS: IBUPROFEN 400 MG TABLET PO (07:52)
[2025-09-03] MEDS: LIDOCAINE 2% INJ MDV 20ML 10 ML INJ (07:54)
[2025-09-03] MEDS: TRIAMCINOLONE 40 MG/ML VIAL INJ (07:54)
[2025-09-03 08:00] VITALS: BP 157/79; PULSE 61; RESP 15; O2SAT 97
== END 2025-09-03 10:16 | disposition home or self-care (01) ==
PROVIDERS: Emergency Provider Family Medicine; PCP Physician Assistant
DX: M25.512 Pain in left shoulder (principal); M25.532 Pain in left wrist
CPT/HCPCS: 20610; 73030; 73110; 99284

== ENCOUNTER → 2025-10-07 07:10 | Outpatient (CLI) | payer MEDICARE, OTHER, SELFPAY ==
--- NOTE | 2025-10-07 07:12 | DI.MRI.S_ITS ---
PROCEDURE: MR SHOULDER LT WO CON
--- NOTE | 2025-10-07 07:12 | DI.MRI.S_ITS ---
PROCEDURE: MR CERVICAL SPINE WO/W CON
== END ==
PROVIDERS: Family Provider Physician Assistant; PCP Physician Assistant; Referring Provider Physician Assistant; Visit Provider Orthopaedic Surgery
DX: M50.31 Other cervical disc degeneration, high cervical region (principal); M47.812 Spondylosis without myelopathy or radiculopathy, cervical region; M48.02 Spinal stenosis, cervical region; R22.1 Localized swelling, mass and lump, neck; M75.112 Incomplete rotator cuff tear or rupture of left shoulder, not specified as traumatic; M25.512 Pain in left shoulder; M75.92 Shoulder lesion, unspecified, left shoulder; M19.019 Primary osteoarthritis, unspecified shoulder
CPT/HCPCS: 72156; 73221; A9579